=== PATIENT | female | born 1975 | race Caucasian/White ===

== ENCOUNTER 2020-06-08 14:04 | Outpatient (CLI) | payer BC | END 2020-06-08 14:05 | disposition home or self-care (01) | LOC: CSHULT 14:04 | PROVIDERS: ATTEND Obstetrics & Gynecology | DX: R92.8 Other abnormal and inconclusive findings on diagnostic imaging of breast (principal); N60.02 Solitary cyst of left breast ==

== ENCOUNTER 2022-02-14 14:40 | Outpatient (CLI) | payer BC | END 2022-02-14 14:41 | disposition home or self-care (01) | LOC: CSHMAMMO 14:40 | PROVIDERS: ATTEND Obstetrics & Gynecology | DX: Z12.31 Encounter for screening mammogram for malignant neoplasm of breast (principal); Z80.3 Family history of malignant neoplasm of breast; Z98.82 Breast implant status | CPT/HCPCS: 77063; 77067 ==

== ENCOUNTER 2023-02-17 15:31 | Outpatient (CLI) | payer BC | END 2023-02-17 15:32 | disposition home or self-care (01) | LOC: CSHMAMMO 15:31 | PROVIDERS: ATTEND Obstetrics & Gynecology | DX: Z12.31 Encounter for screening mammogram for malignant neoplasm of breast (principal); Z80.3 Family history of malignant neoplasm of breast; Z98.82 Breast implant status | CPT/HCPCS: 77063; 77067 ==

== ENCOUNTER 2024-02-19 14:58 | Outpatient (CLI) | payer BC | END 2024-02-19 14:59 | disposition home or self-care (01) | LOC: CSHMAMMO 14:58 | PROVIDERS: ATTEND Obstetrics & Gynecology | DX: Z12.31 Encounter for screening mammogram for malignant neoplasm of breast (principal); Z80.3 Family history of malignant neoplasm of breast; Z98.82 Breast implant status | CPT/HCPCS: 77063; 77067 ==

== ENCOUNTER 2025-02-21 10:55 | Outpatient (CLI) | payer BC | END 2025-02-21 10:56 | disposition home or self-care (01) | LOC: CSHMAMMO 10:55 | PROVIDERS: ATTEND Obstetrics & Gynecology | DX: Z12.31 Encounter for screening mammogram for malignant neoplasm of breast (principal) | CPT/HCPCS: 77063; 77067 ==